=== PATIENT | female | born 1960 | race Caucasian/White ===

== ENCOUNTER 2019-08-31 18:32 | Emergency (ER) | payer OTHER ==
[~2019-08-31] VITALS: Ht 152.4 cm; Wt 52.2 kg
[~2019-08-31 18:32] MED LIST: ASPI325 PO; CENTRUM SILVER1 EAC2 PO; CYAN500 PO; Cyclobenzaprine5 MG PO; Enulose 2020 G/30 ML PO; FOLI400 PO; HYDACE5 PO; HYDR1TAB94 PO; IBUP800 PO; LOPE2C PO; MILK THISTLE; MULVITMINF PO; NAPR500 PO; PROM25 PO; Percocet 5-3251 EACH PO; TRAM50 PO
[2019-08-31] MEDS ORDERED: IBUP600 PO (18:57)
[2019-08-31] MEDS ORDERED: Robaxin-750750 MG PO (18:57)
== END 2019-08-31 19:12 | disposition home or self-care (01) ==
LOC: ER 18:32
DX: M54.5 Low back pain (principal); Z88.0 Allergy status to penicillin; Z79.899 Other long term (current) drug therapy; Z79.82 Long term (current) use of aspirin; Z87.891 Personal history of nicotine dependence; X50.0XXA Overexertion from strenuous movement or load, initial encounter
CPT/HCPCS: 96372; 99283-25; J1885

== ENCOUNTER 2020-01-19 13:17 | Day surgery (SDC) | payer OTHER ==
[~2020-01-19] VITALS: Ht 147.3 cm; Wt 53.2 kg
[~2020-01-19 13:17] MED LIST changes: +IBUP600 PO; +Robaxin-750750 MG PO
--- NOTE | 2020-01-19 14:32 | NUR ---
01/19/20 1432 Blaise Nix PT SUCTIONED ORALLY AT END OF PROCEDURE. SMALL AMOUNT OF CLEAR FLUID.
== END 2020-01-19 15:05 | disposition home or self-care (01) ==
LOC: ORSCSDS 13:17
PROVIDERS: Student in an Organized Health Care Education/Training Program
PROC: 0DB58ZX Excision of Esophagus, Via Natural or Artificial Opening Endoscopic, Diagnostic (ICD-10-PCS; principal; 2020-01-19 15:15)
PROC: 0DB68ZX Excision of Stomach, Via Natural or Artificial Opening Endoscopic, Diagnostic (ICD-10-PCS; principal; 2020-01-19 15:15)
DX: K74.60 Unspecified cirrhosis of liver (principal); C15.9 Malignant neoplasm of esophagus, unspecified; K44.9 Diaphragmatic hernia without obstruction or gangrene; K29.70 Gastritis, unspecified, without bleeding; Z87.891 Personal history of nicotine dependence
CPT/HCPCS: 88305; 88342; J2704; J7120

== ENCOUNTER 2024-05-24 06:20 | Day surgery (SDC) | payer MEDICARE, OTHER ==
[~2024-05-24] VITALS: Ht 139.7 cm; Wt 44.7 kg
[~2024-05-24 06:20] MED LIST changes: +Balanced Salt Epinephrine Irrigation Solution 500 mL IR SCH; +Lidocaine HCl/Pf 1% 5 ML VIAL XX SCH; +Moxifloxacin HCL 0.5 MG/0.1 ML 0.4MLSYR LEFTEYE SCH; +NS 500 ML IV ONE; +PHENYLEPHRINE\\TROPICAMIDE\\TETRACAINE OPHTHALMIC DILATING SOLN LEFTEYE PRN; +Povidone-Iodine 450 DROP/30 ML Solution LEFTEYE SCH; +Povidone-Iodine 450 DROP/30 ML Solution ONE; +Tetracaine HCl/Pf 0.5% Opth Soln 4 ml ONE
[2024-05-24] MEDS ORDERED: HYDROCODONE-AC1 EA19 PO (06:33)
[2024-05-24] MEDS ORDERED: NS 500 ML IV ONE (06:36)
--- NOTE | 2024-05-24 06:37 | NUR ---
05/24/24 0637 Jessica Colorado CALL LIGHT WITHIN REACH. TETRACAINE IN LEFT EYE AT 0636 AND PLEDGETT IN AT 0637
[2024-05-24] MEDS ORDERED: Lidocaine HCl/Pf 1% 5 ML VIAL ONE (06:41)
[2024-05-24] MEDS ORDERED: Midazolam HCl 1MG / ML 2ML Vial ONE (07:23)
[2024-05-24 08:08] VITALS: BP 148/90
== END 2024-05-24 08:22 | disposition home or self-care (01) ==
LOC: ORSCSDS 06:20
PROVIDERS: Student in an Organized Health Care Education/Training Program
PROC: 08RK3JZ Replacement of Left Lens with Synthetic Substitute, Percutaneous Approach (ICD-10-PCS; principal; 2024-05-24 07:30)
DX: H25.813 Combined forms of age-related cataract, bilateral (principal); H25.12 Age-related nuclear cataract, left eye; H21.81 Floppy iris syndrome; H11.9 Unspecified disorder of conjunctiva; K74.60 Unspecified cirrhosis of liver; Z87.891 Personal history of nicotine dependence; Z79.899 Other long term (current) drug therapy
CPT/HCPCS: J2001; J2250; J7040; V2632

== ENCOUNTER 2024-06-01 12:45 | Day surgery (SDC) | payer MEDICARE, OTHER ==
[~2024-06-01] VITALS: Ht 139.7 cm; Wt 44.7 kg
[~2024-06-01 12:45] MED LIST changes: +HYDROCODONE-AC1 EA19 PO; -Moxifloxacin HCL 0.5 MG/0.1 ML 0.4MLSYR LEFTEYE SCH; +Moxifloxacin HCL 0.5 MG/0.1 ML 0.4MLSYR RIGHTEYE SCH; -PHENYLEPHRINE\\TROPICAMIDE\\TETRACAINE OPHTHALMIC DILATING SOLN LEFTEYE PRN; +PHENYLEPHRINE\\TROPICAMIDE\\TETRACAINE OPHTHALMIC DILATING SOLN RIGHTEYE PRN; -Povidone-Iodine 450 DROP/30 ML Solution LEFTEYE SCH; +Povidone-Iodine 450 DROP/30 ML Solution RIGHTEYE SCH
[2024-06-01] MEDS ORDERED: FentaNYL Citrate 50 MCG/ML 2 ML Injection ONE (12:51)
[2024-06-01] MEDS ORDERED: Midazolam HCl 1MG / ML 2ML Vial ONE (12:52)
[2024-06-01] MEDS ORDERED: OMEPRAZOLE DR 20 MG (13:15)
[2024-06-01] MEDS ORDERED: NS 1,000 ML IV ONE (13:25)
[2024-06-01 14:33] VITALS: BP 144/94
== END 2024-06-01 14:53 | disposition home or self-care (01) ==
LOC: ORSCSDS 12:45
PROVIDERS: Student in an Organized Health Care Education/Training Program
PROC: 08RJ3JZ Replacement of Right Lens with Synthetic Substitute, Percutaneous Approach (ICD-10-PCS; principal; 2024-06-01 14:00)
DX: H25.811 Combined forms of age-related cataract, right eye (principal); Z96.1 Presence of intraocular lens; Z87.891 Personal history of nicotine dependence; Z79.899 Other long term (current) drug therapy
CPT/HCPCS: J2250; J3010; J7040; V2632

== ENCOUNTER → 2024-11-08 | Outpatient (CLI) | payer MEDICARE, OTHER ==
[~2024-11-08] MED LIST changes: -Balanced Salt Epinephrine Irrigation Solution 500 mL IR SCH; -Lidocaine HCl/Pf 1% 5 ML VIAL XX SCH; -Moxifloxacin HCL 0.5 MG/0.1 ML 0.4MLSYR RIGHTEYE SCH; -NS 500 ML IV ONE; +OMEPRAZOLE DR 20 MG; -PHENYLEPHRINE\\TROPICAMIDE\\TETRACAINE OPHTHALMIC DILATING SOLN RIGHTEYE PRN; -Povidone-Iodine 450 DROP/30 ML Solution ONE; -Povidone-Iodine 450 DROP/30 ML Solution RIGHTEYE SCH; -Tetracaine HCl/Pf 0.5% Opth Soln 4 ml ONE
[2024-11-15 13:41] LABS: HPV HIGH RISK BY TMA Not Detected; HPV SOURCE Cervical
== END | disposition home or self-care (01) ==
LOC: LAB SHORT 17:09 → LAB 17:09
PROVIDERS: Family Medicine
DX: Z12.4 Encounter for screening for malignant neoplasm of cervix (principal)
CPT/HCPCS: 87624; G0123